=== PATIENT | male | born 1990 | race Caucasian/White ===

== ENCOUNTER 2019-03-17 20:20 | Emergency (ER) | payer SELFPAY ==
[~2019-03-17] VITALS: Ht 188 cm; Wt 124.7 kg
[2019-03-17 20:25] VITALS: BP 136/90
--- NOTE | 2019-03-17 20:25 | NUR ---
TO BED # 08 AMBULATORY
--- NOTE | 2019-03-17 20:43 | NUR ---
28 YO M BIB SELF PRESENTS TO THE ED C/O S/SX ANXIETY X 1 DAY. PT STATES HE IS EXPERIENCING "TIGHTNESS AND BLOATING" IN HIS STOMACH AND FEELS SOB. PT STATES HE HAS HAD ANXIETY IN THE PAST. DENIES CHEST PAIN, NVD. -- PT APPEARS CALM, MILDLY ANXIOUS. BREATHING EVEN, UNLABORED. SPO2: 98% NO S/SX RESPIRATORY DISTRESS NOTED. -- SKIN PINK, WARM, DRY. PMH-- DENIES RX-- DENIES PT POSITIONED FOR COMFORT. HOB ELEVATED. SIDE RAIL UP X1. BED IN LOWEST POSITION. VSS. NO ACUTE DISTRESS AT THIS TIME.
[2019-03-17 21:11] VITALS: BP 146/90
--- NOTE | 2019-03-17 21:18 | NUR ---
PA JOSEFINA WITH PT
[2019-03-17] MEDS ORDERED: LORazepam 2 MG/ML VIAL IVP ONE (21:30)
--- NOTE | 2019-03-17 21:34 | NUR ---
XRAY AT BEDSIDE.
--- NOTE | 2019-03-17 21:39 | NUR ---
EMT PERFORMING EKG AT BEDSIDE.
[2019-03-17 21:55] LABS: BASOPHILS # (AUTO) 0.1 K/uL (0.00-0.22); BASOPHILS % (AUTO) 0.5 % (0.0-2.0); EOSINOPHILS # (AUTO) 0.1 K/uL (0-0.4); EOSINOPHILS % (AUTO) 0.6 % (0.0-4.0); HEMATOCRIT 54.4 % (36-52); HEMOGLOBIN 18.6 g/dL (12.0-18.0); LYMPHOCYTES # (AUTO) 1.6 K/uL (2.0-11.5); LYMPHOCYTES % (AUTO) 14.8 % (20.5-51.1); MEAN CORPUSCULAR HEMOGLOBIN 31 pg (27-31); MEAN CORPUSCULAR HGB CONC 34 g/dL (33-37); MEAN CORPUSCULAR VOLUME 89.2 fL (80-94); MONOCYTES # (AUTO) 0.9 K/uL (0.8-1.0); MONOCYTES % (AUTO) 8.8 % (1.7-9.3); NEUTROPHILS % (AUTO) 75.3 % (42.2-75.2); PLATELET COUNT (AUTO) 233 K/uL (140-450); RED CELL DISTRIBUTION WIDTH 13.4 % (11.6-13.7); WHITE BLOOD COUNT (AUTO) 10.6 K/uL (4.8-10.8)
[2019-03-17 21:59] LABS: ANION GAP 12.1 (8-16); CARBON DIOXIDE 30.3 mmol/L (21-32); CREATININE 1.2 mg/dL (0.7-1.3); POTASSIUM 3.4 mmol/L (3.5-5.1)
[2019-03-17 22:06] LABS: ALBUMIN 4.2 g/dL (3.4-5.0); TOTAL BILIRUBIN 0.7 mg/dL (0.0-1.0)
--- NOTE | 2019-03-17 22:08 | NUR ---
ASKED PT TO PROVIDE URINE SAMPLE 30 MINS AGO. PT HAS NOT RETURNED FROM RR. BOTH RESTROOMS EMPTY. PATIENT ELOPED FROM FACILITY. DISCHARGE INSTRUCTIONS NOT GIVEN TO PATIENT. COLLIN SENIOR NOTIFIED.
--- NOTE | 2019-03-17 22:08 | NUR ---
PT REFUSED ATIVAN AND ELOPED. ATIVAN ALREADY DRAWN. WASTED 2MG/1ML.
--- NOTE | 2019-03-18 05:53 | NUR ---
NOTED WITNESSED SUMMER TAYLOR WASTING 2MG/1ML OF ATIVAN DUE TO PT REFUSING MEDICATION. ER MD MADE AWARE.
== END 2019-03-17 22:08 | disposition left against medical advice (07) ==
LOC: MED 20:20
DX: F41.1 Generalized anxiety disorder (principal); R10.13 Epigastric pain; F17.210 Nicotine dependence, cigarettes, uncomplicated
CPT/HCPCS: 36415; 71045; 80053; 84436; 84443; 85025; 93005; 96374; 99284; J2060; Q0092